=== PATIENT | female | born 1975 | race American Indian/Alaskan Native ===

== ENCOUNTER 2017-09-21 19:05 | Emergency (ER) | payer OTHER ==
[2017-09-21 19:36] VITALS: BP 140/87; PULSE 70; TEMP 98.3; BMI 37.8
--- NOTE | 2017-09-21 20:32 | PDOC ---
History of Present Illness - General Chief Complaint: Chest Pain Stated Complaint: CHEST PAIN Time Seen by Provider: 09/21/17 19:58 History Source: Patient Exam Limitations: No Limitations - History of Present Illness Initial Comments: This is a 41 YOF with h/o HTN, menorrhagia and anemia requiring partial hysterectomy, and mild asthma only during URI, who presents with bilateral upper chest discomfort up to 10/10 (now 5/10 after Motrin and ASAx2) since today at 3pm. The discomfort feels like a boulder pushing down on her chest, and it radiates to the upper back and shoulders on both sides. She spent 2-3 hours in her car today but has not noted any new leg swelling or pain. She also was using chemicals to clean earlier today and has previously been sensitive to such chemicals. She denies any recent SOB, cough, congestion, sore throat, fever , chills, nausea, vomiting, headache, dizziness, numbness, tingling, or weakness. She has not recently fallen or hurt herself. She has had contact with family member who have been sick with URI symptoms. Past History - Past Medical History Allergies/Adverse Reactions: Allergies Allergy/AdvReac Type Severity Reaction Status Date / Time No Known Allergies Allergy Verified 11/22/15 21:18 Home Medications: Ambulatory Orders Ferrous Sulfate 325 mg PO DAILY 11/22/15 Ramipril [Altace] 10 mg PO DAILY 11/22/15 COPD: No HTN: Yes - Suicide/Smoking/Psychosocial Hx Smoking History: Never smoked Have you smoked in the past 12 months: No Information on smoking cessation initiated: No Hx Alcohol Use: No Drug/Substance Use Hx: No Substance Use Type: None Review of Systems - Review of Systems Constitutional: No: Chills, Fever, Unexplained wgt Loss HEENTM: No: Nose Congestion, Throat Pain Respiratory: No: Cough, Shortness of Breath Cardiac (ROS): Yes: Chest Pain. No: Palpitations ABD/GI: No: Constipated, Diarrhea, Nausea, Vomiting : No: Burning, Dysuria Musculoskeletal: Yes: Back Pain (upper). No: Neck Pain Integumentary: No: Bruising, Rash Neurological: No: Headache, Numbness, Tingling, Weakness, Dizziness Endocrine: No: Unexplained Weight Gain, Unexplained Weight Loss *Physical Exam - Vital Signs Last Vital Signs Temp Pulse Resp BP Pulse Ox 98.3 F 70 18 140/87 98 09/21/17 19:33 09/21/17 19:33 09/21/17 19:33 09/21/17 19:33 09/21/17 19:33 - Physical Exam General Appearance: Yes: Nourished, Appropriately Dressed, Obese, Other ( pleasant, appears comfortable, answering appropriately, daughter at bedside). No: Apparent Distress HEENT: positive: EOMI, MONICA, Normal Voice, Hearing Grossly Normal. negative: Scleral Icterus (R), Scleral Icterus (L), Nasal Congestion Neck: positive: Trachea midline, Supple. negative: Rigid, Tender midline Respiratory/Chest: positive: Chest Tender (minimal tenderness to compression of upper chest wall bilaterally), Lungs Clear, Normal Breath Sounds. negative: Respiratory Distress, Crackles, Rhonchi, Stridor, Wheezing Cardiovascular: positive: Regular Rhythm, Regular Rate. negative: Edema, Murmur Gastrointestinal/Abdominal: positive: Normal Bowel Sounds, Soft, Other ( negative Gan's sign). negative: Tender, Organomegaly, Pulsatile Mass, Guarding Musculoskeletal: positive: Normal Inspection. negative: Decreased Range of Motion, Vertebral Tenderness Extremity: positive: Normal Capillary Refill, Normal Inspection, Normal Range of Motion. negative: Tender, Cyanosis Integumentary: positive: Normal Color, Dry, Warm. negative: Erythema, Rash, Bruising Neurologic: positive: marketing operations assistant II-XII NML intact (grossly), Fully Oriented, Alert, Normal Mood/Affect, Normal Response, Motor Strength 5/5 ED Treatment Course - LABORATORY CBC & Chemistry Diagram: 09/21/17 20:23 09/21/17 20:23 - ADDITIONAL ORDERS Additional order review: Laboratory Results 09/21/17 09/21/17 09/21/17 20:23 20:23 20:23 Sodium 139 Potassium 3.9 Chloride 104 Carbon Dioxide 27 Anion Gap 8 BUN 18 Creatinine 0.6 Creat Clearance w eGFR > 60 Random Glucose 87 Calcium 8.5 Phosphorus 4.1 Magnesium 2.0 Total Bilirubin 0.4 AST 7 L ALT 23 Alkaline Phosphatase 87 Creatine Kinase 84 Troponin I < 0.02 Total Protein 6.6 Albumin 3.4 Lipase 233 Urine Color Yellow Urine Appearance Slcloudy Urine pH 5.0 D Ur Specific [place] 1.028 Urine Protein Negative Urine Glucose (UA) Negative Urine Ketones Negative Urine Blood Negative Urine Nitrite Negative Urine Bilirubin Negative Urine Urobilinogen Negative 09/21/17 20:23 RBC 4.32 MCV 85.1 MCHC 33.3 RDW 14.1 MPV 7.4 L Neutrophils % 56.1 D Lymphocytes % 32.0 D Monocytes % 9.2 Eosinophils % 2.1 Basophils % 0.6 - RADIOLOGY Radiology Studies Ordered: Category Date Time Status CHEST PA & LAT [RAD] Stat Radiology 09/21/17 20:23 Taken Medical Decision Making - Medical Decision Making 41 YOF with mild asthma only with URI in the past, who presents with bilateral chest discomfort like a boulder on her chest. Slight increased stress level recently as she has a new job. On exam vitals are within normal limits (except slight HTN) and normal cardiac and respiratory exams. Mild tenderness to compression of the upper chest wall bilaterally, otherwise normal exam. DDX IBNLT asthma/bronchospasm exacerbated by chemical use, PNA/bronchitis, PE, ACS, GERD, cholecystitis, etc. Unlikely pneumothorax as Pt has no mechanism for this. Unlikely PE as PERC criteria rules out (patient has none of the criteria). Ordered is CXR, EKG, CBCD< CMP, Mg, Phos, cardiac panel, UA cx. *DC/Admit/Observation/Transfer - Discharge Dispostion Disposition: HOME Condition at time of disposition: Stable Admit: No - Referrals - Patient Instructions Additional Instructions: You were seen in the ER for chest pain. We did a chest x-ray, electrocardiogram , and lab work on your blood and urine. There were no concerning findings. We do not believe that you are having any kind of heart or lung emergency, and we believe your symptoms are most likely due to chemical inhalation, with possible mild underlying asthma. Please follow up with your regular doctor, or you can return to the ER for any new or worsening symptoms like shortness of breath, palpitations, worsening pain, or other symptoms. Take Tylenol or Motrin for the pain. - Post Discharge Activity Forms/Work/School Notes: Back to Work
[2017-09-21 20:56] LABS: BASOPHIL 0.6 % (0-2.0); EOSINOPHIL 2.1 % (0-4.5); MCH 28.3 pg (25.7-33.7); MCHC 33.3 g/dl (32.0-36.0); MEAN CELL VOLUME 85.1 fl (80-96); MEAN PLT VOLUME 7.4 fl (7.5-11.1); NEUTROPHILS 56.1 % (42.8-82.8); PLATELET COUNT 321 K/MM3 (134-434); RDW 14.1 % (11.6-15.6)
[2017-09-21 21:18] LABS: URINE APPEARANCE SLCLOUDY; URINE BILIRUBIN NEGATIVE (NEGATIVE); URINE BLOOD NEGATIVE (NEGATIVE); URINE COLOR YELLOW; URINE GLUCOSE (UA) NEGATIVE (NEGATIVE); URINE KETONE NEGATIVE (NEGATIVE); URINE NITRITE NEGATIVE (NEGATIVE); URINE PROTEIN NEGATIVE (NEGATIVE); URINE UROBILINOGEN NEGATIVE mg/dL (0.2-1.0)
[2017-09-21 21:22] LABS: ALBUMIN 3.4 g/dl (3.4-5.0); ANION GAP 8 (8-16); BILIRUBIN,TOTAL 0.4 mg/dL (0.2-1.0); CALCIUM 8.5 mg/dL (8.5-10.1); CO2 27 mmol/L (21-32); CREATININE 0.6 mg/dL (0.55-1.02); GLUCOSE,RANDOM 87 mg/dL (74-106); PHOSPHOROUS 4.1 mg/dL (2.5-4.9); SGOT/AST 7 U/L (15-37); SGPT/ALT 23 U/L (12-78); TOT PROT 6.6 g/dl (6.4-8.2)
[2017-09-21 21:25] LABS: ALK PHOS 87 U/L (45-117); CPK 84 IU/L (26-192); TROPONIN I < 0.02 ng/ml (0.00-0.05)
[2017-09-21] MEDS ORDERED: ACETAMINOPHEN 1000 MG/100 ML VIAL (NON FORMULARY) IVPB ONE (22:55)
--- NOTE | 2017-09-21 23:01 | PDOC ---
Attending Attestation - Resident Resident Name: Amy Jimenez - ED Attending Attestation I have performed the following: I have examined & evaluated the patient, The case was reviewed & discussed with the resident, I agree w/resident's findings & plan - HPI HPI: 09/21/17 22:56 Pt comes with chest pain and midscapular pain after cleaning her kitchen and oven with "[employer]" kitchen food assembler that she realized caused her to feel this way the last time she used it. States that she cleaned this AM. And she spent the whole day out of the house. She was driving a few hours. States that on her way home she felt SOB and she felt the muscle cramps. She took motrin at 6PM with some relief. - Physicial Exam PE: 09/21/17 23:00 Agree with resident exam. Lungs are clear. Pt has no fever or chills. CXR normal. Pt works for [employer] fhe has no sick contatcs. SHe has 4 kids none are ill. Pt is under a great deal of stess because her uncle just flew in from [place] and he is dying at [facility]. Pt has normal labs. - Medical Decision Making 09/21/17 23:01 Stable for discharge. EKG is NSR
[2017-09-22 12:17] LABS: URINE LEUK ESTERASE Negative (NEGATIVE)
--- NOTE | 2017-09-23 09:52 | EKG ---
Test Reason : Blood Pressure : / mmHG Vent. Rate : 077 BPM Atrial Rate : 077 BPM P-R Int : 154 ms QRS Dur : 072 ms QT Int : 368 ms P-R-T Axes : 058 057 050 degrees QTc Int : 416 ms NORMAL SINUS RHYTHM NORMAL ECG WHEN COMPARED WITH ECG OF 06-FEB-2003 21:56, NO SIGNIFICANT CHANGE WAS FOUND Confirmed by MICHAEL EVANS MD ([id number]) on 09/23/2017 9:52:12 AM Referred By: Confirmed By:MICHAEL EVANS MD
== END 2017-09-21 23:18 | disposition home or self-care (01) ==
LOC: JER 19:05
DX: R07.89 Other chest pain (principal); I10 Essential (primary) hypertension
CPT/HCPCS: 36415; 71020-TC; 80053; 81003; 82550; 83690; 83735; 84100; 84484; 85025; 87086; 93005; 93010; 99283-25

== ENCOUNTER 2021-07-28 08:19 | Emergency (ER) | payer OTHER ==
[2021-07-28 08:35] VITALS: BP 150/90; PULSE 92; TEMP 99.7; BMI 29.0
== END 2021-07-28 10:49 | disposition home or self-care (01) ==
LOC: JER 08:19
DX: U07.1 COVID-19 (principal)
CPT/HCPCS: 71046-TC-FY; 99283-25

== ENCOUNTER 2022-09-09 05:05 | Emergency (ER) | payer OTHER ==
[2022-09-09 05:27] VITALS: BP 135/87; PULSE 98; RESP 20; TEMP 98; BMI 40.2
[2022-09-09 07:38] LABS: BASO % 0.5 % (0-2.0); EOS % 3.2 % (0-4.5); HEMATOCRIT 39.5 % (32.4-45.2); HEMOGLOBIN 13.2 GM/dL (10.7-15.3); LYMPH % 22.1 % (8-40); MCH 28.7 pg (25.7-33.7); MCHC 33.4 g/dl (32.0-36.0); MEAN PLT VOLUME 7.2 fl (7.5-11.1); MONO % 9.2 % (3.8-10.2); PLATELET COUNT 368 10^3/uL (134-434); RBC 4.59 M/mm3 (3.60-5.2); WHITE BLOOD COUNT 6.4 K/mm3 (4.0-10.0)
[2022-09-09 07:42] LABS: CALCIUM 8.7 mg/dL (8.5-10.1)
[2022-09-09 07:43] LABS: ALBUMIN 3.6 g/dl (3.4-5.0); BLOOD UREA NITROGEN 16.5 mg/dL (7-18)
[2022-09-09 07:46] LABS: CREATININE 0.7 mg/dL (0.55-1.3)
[2022-09-09 07:48] LABS: BILIRUBIN,TOTAL 0.4 mg/dL (0.2-1); TOT PROT 6.7 g/dl (6.4-8.2)
[2022-09-09 07:49] LABS: PH,URINE 5.5 (5.0-8.0); URINE APPEARANCE CLEAR; URINE BILIRUBIN NEGATIVE (NEGATIVE); URINE COLOR YELLOW; URINE GLUCOSE (UA) NEGATIVE (NEGATIVE); URINE KETONE NEGATIVE (NEGATIVE); URINE LEUK ESTERASE NEGATIVE (NEGATIVE); URINE NITRITE NEGATIVE (NEGATIVE); URINE PROTEIN NEGATIVE (NEGATIVE); URINE UROBILINOGEN 0.2 mg/dL (0.2-1.0)
[2022-09-09] MEDS ORDERED: MIDAZOLAM HCL 2 MG/2 ML SINGLE DOSE VIAL IVPUSH ONE (10:08)
== END 2022-09-09 12:15 | disposition home or self-care (01) ==
LOC: JER 05:05
PROC: 3E033NZ Introduction of Analgesics, Hypnotics, Sedatives into Peripheral Vein, Percutaneous Approach (ICD-10-PCS; principal; 2022-09-09)
DX: K52.9 Noninfective gastroenteritis and colitis, unspecified (principal)
CPT/HCPCS: 36415; 74177-TC; 76830-TC; 80053; 81003; 84484; 84703; 85025; 87086; 93005; 93010; 99285-25